=== PATIENT | male | born 1960 | race Caucasian/White ===

== ENCOUNTER 2021-07-10 06:04 | Outpatient (REF) | payer OTHER, SELFPAY | END 2021-07-10 06:05 | disposition home or self-care (01) | LOC: HO.HOSX 06:04 | PROVIDERS: Visit Provider Physician Assistant | DX: Z13.89 Encounter for screening for other disorder (principal) ==

== ENCOUNTER 2022-12-10 07:37 | Outpatient (REF) | payer OTHER, SELFPAY | END 2022-12-10 07:38 | disposition home or self-care (01) | LOC: HO.CT 07:37 | PROVIDERS: PCP Internal Medicine; Visit Provider Internal Medicine | DX: R51.9 Headache, unspecified (principal); Z91.81 History of falling | CPT/HCPCS: 70450 ==

== ENCOUNTER 2023-01-05 12:35 | Outpatient (REF) | payer OTHER, SELFPAY ==
--- NOTE | ~2023-01-05 | US_ITS ---
EXAMINATION: US VENOUS ULTRASOUND WITH DOPPLER LOWER EXTREMITY, LEFT CLINICAL INFORMATION: Left lower extremity pain. COMPARISON: None available. TECHNIQUE: Ultrasound of the deep veins is performed from the hip to the calf with compression sonography and color and pulse Doppler assessment. Spectral analysis with color-flow imaging is performed. FINDINGS: There is normal venous compression and respiratory variation and augmented flow. The visualized common femoral vein, superficial femoral vein, profunda femoral vein, popliteal vein, and the trifurcation region shows no evidence of deep venous thrombosis. No left popliteal cyst. The subcutaneous soft tissues are unremarkable. If the patient's symptoms persist, followup ultrasound in 5 days 7 days might be of value to exclude proximal propagation from a non-visualized calf vein. US/US venous duplex LE LT IMPRESSION: No evidence for deep venous thrombosis in the visualized veins of the left lower extremity.
--- NOTE | ~2023-01-05 | XR_ITS ---
EXAMINATION: XR CERVICAL SPINE CLINICAL INFORMATION: Neck pain. COMPARISON: MRI cervical spine 08/29/2006 TECHNIQUE: 5 views of the cervical spine were obtained. FINDINGS: The cervical spine is imaged through the C7 vertebral body. Relative straightening of the cervical lordosis. Vertebral body heights are maintained. Moderate intervertebral disc space narrowing at C5-C6 and C6-C7. Predominant right-sided facet hypertrophy. Lateral masses are symmetric. Prevertebral soft tissues are within normal limits. Imaged lung apices are clear. XR/XR cervical spine 3V IMPRESSION: Moderate degenerative disc disease C5-C6 and C6-C7.
== END 2023-01-05 12:36 | disposition home or self-care (01) ==
LOC: HO.HMGCX 12:35
PROVIDERS: PCP Internal Medicine; Visit Provider Internal Medicine
DX: M79.662 Pain in left lower leg (principal); M54.2 Cervicalgia
CPT/HCPCS: 72040; 93971

== ENCOUNTER 2024-08-01 15:40 | Outpatient (REF) | payer BC, SELFPAY ==
--- NOTE | ~2024-08-01 | XR_ITS ---
EXAMINATION: XR CERVICAL SPINE CLINICAL INFORMATION: PAIN WITH RADICULOPATHY COMPARISON: 01/05/2023. TECHNIQUE: 7 views of the cervical spine, inclusive of bilateral oblique views, were obtained. FINDINGS: There is osteopenia. There is a trace levoconvex scoliosis, possibly positional. There is a normal cervical lordosis. There are no subluxations. There are no compression deformities, acute fractures, or suspicious bone lesions. Atlantoaxial and C1-2 articulations are intact and aligned. There are mild to moderate degenerative disc changes most notable at C5-6 and C6-7. Facets are normally aligned. There are multilevel hypertrophic degenerative facet changes right greater than left. Oblique views demonstrate moderate bony neural foraminal narrowing on the right at C4-5 and C5-6, and moderate narrowing on the left at C5-6. Mild left narrowing at C4-5. XR/XR cervical spine 5V IMPRESSION: 1. No acute findings of the cervical spine. 2. Moderate degenerative spondylosis as discussed. Findings are largely unchanged from 01/05/2023. Electronically signed by: Levi Peña MD 08/02/2024 08:18 AM DAYANNA
--- OUTSIDE RECORDS SUMMARY | 2024-08-01 19:12 | XMS_ITS | Data Portability ---
Author Organization [place] - [facility], [facility] Office Address [address] [place] [address] Care Team Providers Care Department Clerk Name Role Phone DANIEL PRUETT Primary Care Provider [phone] Assessment Encounter Date Assessment Date Assessment LastModified by Organization Details LastModified Time 02/14/2017 02/14/2017 DATA: Films of both knees were obtained today. His left knee does show significant lateral compartment arthrosis with narrowing of the joint space. His right side is relatively well preserved without significant arthrosis. IMPRESSION: As above. PLAN: I would recommend fairly complex workup for this, in that his presentation with multiple joint problems is somewhat suggestive of a Lyme titer, so would recommend a workup for that to include Lyme titer and repeat sed rate and CRP. Additionally, would recommend getting MRI scans of both his right shoulder and right knee for assessment of these structures, and finally when he comes back with his new MRI scans, I would like to see him come along with his left knee MRI, which got left home today. Not available 02/15/2017 16:09:26 10/13/2017 10/13/2017 DATA: Review of his outside plain radiographs is notable for significant narrowing of the lateral compartment of this joint, with good preservation of the medial and patellofemoral compartments. IMPRESSION: Clearly he has significant lateral compartment fpjw-pt-bjjf arthritis. PLAN: I would recommend trying to unload this with an testing consultant brace. He is very fit and athletic, such that the brace is likely to give him significant relief. Additionally, it would be my recommendation that he undergo a physical therapy program to try to restore his quad tone and bulk. I would be happy to see him back in the future; in fact, would recommend a recheck in 3 months? time to assess his progress with his treatment. Prescriptions for the brace and PT were given. Not available 10/16/2017 00:07:38 05/20/2021 05/20/2021 DATA: I based my interpretation of his x-ray just from the report as I do not actually have the films, but per Dr. Moya's note from 2018 he had severe tnlq-wa-vepl lateral compartment arthritis and that has likely progressed. IMPRESSION: I think at this point in time he needs some physical therapy due to the amount of atrophy in his knee, but eventually he will need to see a joint surgeon. PLAN: We have him scheduled to see Dr. Galeana in August. I gave him a new PT referral today. He will follow-up with me as needed. The patient did complete the COVID-19 screening handout and was deemed healthy to move forward with this appointment. This visit is a cxzq-oz-ywzm visit during the COVID-19 pandemic Public Health Emergency. Based on my clinical judgment, I felt that this visit could not be provided safely and appropriately via TeleHealth. Based on available information prior to presentation, the patient had a high risk of significant worsening and potential functional impairment affecting ADLs if the visit was not completed today. The patient was seen in the office after following PPE use, Workforce Safety, Patient Safety and Infection Control protocols for all services provided today in accordance with [facility] and CDC guidelines. There was additional practice expense incurred due to the Public Health Emergency. This additional expense includes but is not limited to: ? ? Additional clinical staff and medical technical publications writer time for pre-screening ? ? Time spent reviewing COVID social distancing guidelines, precautions, instructions, and signage ? ? Patient symptom checking upon arrival ? ? Application, removal, and purchasing of additional PPE ? ? Additional cleaning of exam room, equipment, supplies, as well as cleaning supplies for that purpose. Not available 05/21/2021 23:57:26 12/16/2023 12/16/2023 Independent interpretation the x-rays today and the clinical examination of the left knee show end-stage bone against bone severe degeneration the left knee particular in the lateral compartment with loss of joint space, subchondral sclerosis, osteophyte formation, genu valgum and significant loss of function the left knee including atrophy and lack of function with limitations even of activities of daily living. We? ve discussed the many forms of conservative care for the treatment of the pain and the disability of knee arthritis. Prescription or over the counter NSAIDs have been discussed. These are offered to patients to be taken as directed only in those patients who can tolerate the medications and have no contraindication. He reports he is taken all different types of anti-inflammatory medications. He reports these have failed and he is now taking 5 mg of oxycodone. I have been extremely straightforward with the patient. I have told him that taking chronic narcotic will make it extremely difficult for him to have any type of relief with postoperative pain medications. It will factor into the potential that he will have a poor outcome after his knee replacement surgery. I would suggest trying to stop the narcotics or potentially at least taking a long vacation from them. Next, we have discussed injection in the knee and the many types of injection techniques. We have discussed cortisone, hyaluronic or gel injections, plasma rich protein ( PRP) and even stem cell. These can be made available here in the office. Pros and the cons discussed and if these are helpful they can even be repeated. He really is not interested in injections at all. Moderation of activities and even the use of bracing for the knee was discussed. For more extensive pain and disability possibly cane, crutch or walker. Physical therapy was discussed and can be prescribed in the more disabled patients. I am going to start some physical therapy for the atrophy of the left knee. Finally, we have discussed the potential for total knee arthroplasty for the treatment of intractable knee arthritis. He has become extremely frustrated with the left knee and limited for his function. We have now discussed the potential for a left possibly outpatient TKA. We talked about the pros and cons of left possibly outpatient TKA potential complications. These complications include, but are not limited to, infection, bleeding, stiffness, limitation of motion, limitation of recovery, the risks of limited knee motion, the need for closed manipulation in the short term. I talked about the extraordinary difficulty of gaining back the ROM, including the need for use of physical therapy modalities and even the need for extensive therapeutic modalities, maybe even bracing and potentially long rehab that could last even up to one year. We have discussed the potential for closed manipulation at the end of the initial rehabilitation if the flexion has not been gained adequately. We discussed the use of a splint or DynaSplint if flexion and extension, or if extension is the primary issue. We also talked about the potential for ligamentous injury, fracture of the femur, tibia or patella. We talked about the risks of problems with malalignment and persistent pain and swelling and the need for further operation or surgery. We also discussed the potential for wear, wear of the plastic and potential osteolysis. We talked about potential loosening of the components and the potential need for further surgical intervention over time. We have discussed the potential for loosening of the interfaces. We talked about the risks of potential peroneal nerve injury in those valgus patients with the need for realignment and the potential for ligamentous injury to the varus patients that are in need of realignment. We discussed the pros, cons, indications, risks, benefits and potential complications in a lengthy detailed discussion. The patient appears to understand and would like to consider that left possibly outpatient TKA surgery. Patient has end stage OA, and over the past year has failed conservative treatments including activity modification, NSAIDS, and physical therapy. He would like to consider moving ahead with a left total knee arthroplasty potentially as an outpatient. All questions answered. [email or web address] Not available 12/16/2023 12:02:03 Plan of Treatment Reminders Order Date Submit Date Provider Last Modified By Organization Details Last Modified Time Details Appointments None recorded. Lab None recorded. Referral physical therapist referral - Knee arthritis PT 2023 024 [email or web address] Not available 4 12:08:49 Procedures None recorded. Surgeries orthopaedic surgery (SURG) 2023 024 [email or web address] Not available 4 13:21:16 Imaging None recorded. Medication Orders None recorded. Patient TargetsNo targets recorded. Patient InstructionsNo instructions recorded. Reason for Referral Physical Therapist Referral for Osteoarthritis of left knee joint Knee arthritis PT Referring Physician: De De Oliveira, Orthopedic Surgery, Encounter Date: 12/16/2023 Results Created Date Observation Date Name Description Value Unit Range Abnormal Flag Note LastModifiedBy Organization Detail LastModifiedTime 02/15/20 17 02/14/2017 XR, knee, 4 or more view John Woods Access ion Number : [id number] 2.1 Reyna gonzalez Name : Gelina s, Luke Medica niki Record Number : [id number] Date of : 1960 Date of Exam : 2016 Referr ing Physic monisha : FREDERICK GONZALES ND [facility] [address] [place] [address] Exam : CR - KNEE BILATE RAL, 4 VIEWS EACH, CPT CPT 48220- 50 - Room Descri ption : [facility] Vistek UArm XR Techni que : Bilate ral AP, Bilate ral Sunris e, Rt. Latera l, Lt. Latera l, Bilate ral Tunnel Final Report HISTOR Y: Bilate ral knee pain. FINDIN GS: No prior examin ations or report s are availa ble for compar antony. Bilate ral AP, tunnel , sunris e and latera l views were submit bertram. No fractu re or malali gnment is seen. Joint spaces are mainta ined. No signif icant joint effusi on is identi fied. There is thicke paulo of the proxim al infrap atella r soft tissue s. IMPRES TIRSO: Bilate ral knee x-ray. 1. No eviden ce for fractu re. 2. Bilate ral thicke paulo of the proxim al infrap atella r soft tissue s possib ly second michael to patell a tendin opathy and/or prepat ellar bursit is. ----- PHYSIC MONISHA : RAY LUNA MD (Signa loyd on file) 2016 [email or web address] [facility] [address], [place], [address], 02/14/2017 15:57:24 02/16/20 17 01/26/2017 MRI, knee, w/o contr ast No observ ation record ed. [email or web address] Not Available 08:15:32 10/14/19 18 02/24/2004 MRI, knee, w/o contr ast No observ ation record ed. [email or web address] Not Available 10/19 12:37:23 12/10/19 21 img:o iknee s bilat No observ ation record ed. [email or web address] [address], [place], [address] 12/09/2020 10:04:41 Result Notes None recorded. Problems Name Problem SNOMED Code Status Onset Date Resolution Date Notes Provider Name and Address Organization Details Recorded Time No current problems or disability 975218558 Active rekha nicholas yoli [facility] 8 15:35:10 Pain of left knee joint 8313959810961 07 Active 2020 Lynette nailsjosue kent [facility] 14:15:20 Problem Notes None recorded. Procedures Surgical History Date Name Laterality Status Provider Name and Address Organization Details Recorded Time 05/06/20 12 Orthopaedic Surgery completed Manjula Clarke [facility] 02/14/2017 14:15:29 04/06/20 07 Orthopaedic Surgery completed Manjula Clarke [facility] 02/14/2017 14:15:01 03/06/20 04 Orthopaedic Surgery completed Manjula Clarke [facility] 02/14/2017 14:14:48 Imaging Results Imaging Date Name Status LastModified by Organiz ation Details LastModified Time 02/14/2017 XR, knee, 4 or more view completed [email or web address] [facility] [address], [place], [address], 02/14/2017 15:57:24 01/26/2017 MRI, knee, w/o contrast completed [email or web address] Information not available 02/16/2017 08:15:32 02/24/2004 MRI, knee, w/o contrast completed [email or web address] Information not available 10/19/2017 12:37:23 12/09/2020 [email or web address] bilat completed [email or web address] [facility] [address] [place], [address] 12/09/2020 10:04:41 Procedure Notes None recorded. Medical Equipment None Reported. Allergies No known drug allergies Medications Name Sig Start Date Stop Date Status Note LastModified by Organization Details LastModified Time prednisone 20 mg tablet TK 3 TS PO QD FOR 5 DAYS 05/20 completed Not Available Not Available Not Available tramadol 50 mg tablet TAKE ONE TABLET BY MOUTH THREE TIMES A DAY NEEDED FOR PAIN IN BACK 02/14 completed Not Available Not Available Not Available triamcinolo ne acetonide 0.1 % topical cream APPLY SPARINGLY TO THE AFFECTED AREA TWICE DAILY FOR NO MORE THAN 2 WEEKS 12/14 completed Not Available Not Available Not Available oxycodone-a cetaminophe n 5 mg-325 mg tablet 10/13 completed Not Available Not Available Not Available cephalexin 500 mg capsule TAKE 1 CAPSULE BY MOUTH FOUR TIMES DAILY FOR 7 DAYS active Not Available Not Available No t Available morphine ER 15 mg tablet,exte nded release 10/13 completed Not Available Not Available Not Available colchicine 0.6 mg tablet 05/20 completed Not Available Not Available Not Available dextroamphe tamine-amph etamine ER 30 mg 24hr capsule,ext end release TAKE 1 CAPSULE BY MOUTH TWICE DAILY IN THE MORNING AND AFTERNOON WITH MEALS FOR ADHD active Not Available Not Available No t Available sertraline 50 mg tablet TAKE 1 TABLET BY MOUTH EVERY MORNING WITH MEALS active Not Available Not Available No t Available sulindac 200 mg tablet TAKE 1 TABLET BY MOUTH TWICE DAILY WITH FOOD 05/20 completed Not Available Not Available Not Available diazepam 5 mg tablet TAKE 1 TABLET BY MOUTH THREE TIMES DAILY NEEDED active Not Available Not Available No t Available oxycodone 5 mg tablet TAKE 2 TABLETS BY MOUTH FOUR TIMES DAILY active Not Available Not Available No t Available bupropion HCl SR 200 mg tablet,12 hr sustained-r elease 12/14 completed Not Available Not Available Not Available bupropion HCl XL 300 mg 24 hr tablet, extended release TAKE 1 TABLET BY MOUTH EVERY MORNING WITH 150 MG active Not Available Not Available No t Available bupropion HCl XL 150 mg 24 hr tablet, extended release TAKE 1 TABLET BY MOUTH EVERY MORNING WITH 300 MG TABLET active Not Available Not Available No t Available OxyContin 05/20 completed Not Available Not Available Not Available oxycodone 10 mg tablet 05/20 completed Not Available Not Available Not Available BinaxNOW COVID-19 Ag Self Test kit TEST DIRECTED TODAY active Not Available Not Available No t Available Vitals Date Recorded Body height Body mass index (BMI) Body weight Provider Name and Address Organization Details Last Updated DateTime 05/20/2021 177.8 cm 23 kg/m2 90860.78 g Elvia Tilley [place] - [facility] 05/20/2021 11:58:00 Date Recorded Body height Body mass index (BMI) Body weight Provider Name and Address Organization Details Last Updated DateTime 12/16/2023 177.8 cm 23.7 kg/m2 45367.74 g Jeane Allredlman [facility] 12/16/2023 11:31:28 Date Recorded Body height Body mass index (BMI) Body weight Provider Name and Address Organization Details Last Updated DateTime 02/14/2017 172.72 cm 23.6 kg/m2 53020.82 g Manjula Tricia [facility] 02/14/2017 14:13:46 Date Recorded Body height Body mass index (BMI) Body weight Provider Name and Address Organization Details Last Updated DateTime 10/13/2017 172.72 cm 22.8 kg/m2 84835.86 g rekha cristopher [facility] 10/13/2017 15:32:02 Social History Question Answer Notes LastModified by [email or web address] ion Details LastModified Time Tobacco Smoking Status [facility] 02/14/2017 14:15:59 What Is Your Level Of Alcohol Consumption? None Information not available 12/16/2023 Do You Or Have You Ever Used E-cigarettes Or Vape? 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 Yes Back heena Information not available 02/14/2017 What Was The Date Of Your Most Recent Tobacco Screening? 10/13/2017 Information not available 12/28/2018 Do You Or Have You Ever Used Smokeless Tobacco? [id number] Information not available 12/16/2023 How Much Tobacco Do You Smoke? No Information not available 12/16/2023 How Many Years Have You Smoked Tobacco? 0 Information not available 12/16/2023 Sex: Unknown Functional Status None recorded. Mental Status None recorded. Family History Relationship Description Onset Age of this Age Resolved Age Notes LastModified by Organization Details LastModified Time Father No current problems or disability [email or web address] Not available 05/06 12:02:05 Mother No current problems or disability [email or web address] Not available 05/06 12:02:05 Medical History Condition Response Blood Clots / Phlebitis N Heart Problems N HIV or AIDS N Depression or Anxiety Y High Blood Pressure N Irregular Heartbeat N MRSA N Emphysema / Chronic Bronchitis N Any Other Significant Medical Issues N Reaction to General/Local Anesthesia N Weight Gain / Loss N Hepatitis / Jaundice N Kidney / Bladder Infections N Diabetes N Bleeding Disorder N Hearing Loss N Angina, Heart Failure or Attack N Night Sweats N Seizures / Epilepsy N Osteoarthritis / Rheumatoid arthritis / Other Y Cancer N Stroke N Chemical Dependency / Alcoholism N Ulcer / Stomach Bleeding / Indigestion N Visual Loss or Glaucoma N Psoriasis / Skin Rash N Thyroid Disorder N Heart Disease N Asthma / Shortness of Breath / Sleep Pricing Consultant ea (please specify) N Pulmonary Embolism N Immunizations Vaccine Type Date Status Note Provider Nam e and Address Organization Details Recorded Time SARS-COV-2 (COVID-19) vaccine, UNSPECIFIED 07/07/2020 completed Elvia kent [facility] 05/20/2021 12:01:31 SARS-COV-2 (COVID-19) vaccine, UNSPECIFIED 07/28/2020 completed Elvia kent [facility] 05/20/2021 12:01:34 SARS-COV-2 (COVID-19) vaccine, UNSPECIFIED 01/04/2021 completed Elvia kent [facility] 05/20/2021 12:01:41 Past Encounters Encounter ID Performer Location Encounter Start Date Encounter Closed Date Diagnosis/Indication Diagnosis SNOMED-CT Code Diagnosis ICD10 Code Diagnosis Note [id number] MD Trevon Quintero am Office [address] [place] [address] 02/14/2017 13:14:08 02/14/2017 15:08:38 Osteoarthritis of knee 734932198 M17.32 Synovitis 994785348 M65. 161 [id number] MD Trevon Quintero am Office [address] [place] [address] 10/13/2017 14:55:42 10/13/2017 16:25:40 Osteoarthritis 826181161 M17.32 [id number] OUMOU SAUCEDO [facility] Office [address] [place] [address] 05/20/2021 11:02:45 05/20/2021 14:15:02 Pain of left knee joint 5379262458 40983 M25.363 [id number] DE FRANCISCO MD [facility] [address], [address] [place] [address] 12/16/2023 11:06:25 12/16/2023 12:08:49 Osteoarthritis of left knee joint 3529780261 34202 M17.12 Health Concerns Section Related Observation LastModified by Organization Detai ls LastModified Time None Recorded Concern Status LastModified by Organization Details LastModified Time None Recorded Advance Directives Directive None Recorded Payers Encounter Date Sequence Insurance Name Policy Number Policy Diallo Covered Member ID Diallo Member ID Guarantor Name 02/14/[address] [place] [address] [place] [id number] Margie Venessa [id number] Luke Venessa 10/13/2017 2 [facility] ([facility] [id number] Margie Venessa [id number] Luke Venessa 05/20/2021 1 [facility] [id number] Luke Venessa [id number] Luke Venessa 12/16/2023 1 [facility]: [facility] ([facility] [id number] Margie Juan [id number] Luke Venessa Notes Date Note Type Note Provider Name and Address Organization Details Recorded Time 02/14/2017 text/html DX: Complex mult i joint pain, question meniscal tear right knee, possible rotator cuff tear right shoulder, and posttraumatic arthrosis left knee. HX: Ralf is known to me having done arthroscopic surgery on his left knee back in 2003 for a complex tear of his lateral meniscus with parameniscal cyst and significant arthrosis. He did well post that but has had progressively increasing pain recently. Has had atraumatic onset of significant swelling in both knees. Apparently he had prepatellar bursitis treated by his primary care doctor that was not infected. He has also had right shoulder pain. He has multiple aches and pains all over. He has not been worked up for Lyme, but did have a significantly elevated sed rate back in January when he was worked up for pre-patellar bursitis that was in the upper 50s. His left knee has bothered him for a long time, and he has actually developed a fair amount of atrophy in that thigh, which is bothersome to him. PMH: Quite complex, which is outlined in his intake sheet, which is reviewed with him. He is currently working in financial services. Frederick Moya MD [address] [place] [address], [phone], [facility] 02/16/2017 07:33:44 10/13/2017 text/html DX: Lateral compartment osteoarthritis of the left knee. HX: Ralf is a gentleman I treated for this in the distant past. He has longstanding left knee pain that bothers him with activity. It does significantly limit him. It is not associated with any mechanical symptoms. He has had a prior diagnosis of anterior cruciate ligament deficient knee as well, and at the time of the previous arthroscopy his ACL was absent. He comes here seeking a second opinion since treatment options have been very limited, what they have explained to him in the [place] area. Frederick Moya MD [address] [place] [address], [phone], [facility] 10/17/2017 07:05:11 05/20/2021 text/html HX: Ralf is a ve ry pleasant 60-year-old male, a former patient of Dr. Moya. He last saw Dr. Moya on 10/13/2017. At that time Dr. Moya did mention that he had significant lateral compartment xffj-kp-xyez arthritis. He obtained an testing consultant brace for him, which helped. He wanted him to undergo some physical therapy, but unfortunately due to some family and life issues he has not been able to fully be compliant with PT. He is interested in getting back into that. He knows Dr. Myoa has retired and he was recently seen by [facility] out in [facility]. I do have the last office note and their interpretation of the x-rays, but I do not have the actual films. It sounds like there was an agreement that he had lateral compartment left knee osteoarthritis. There was a discussion of potentially obtaining a new MRI and doing a recheck after physical therapy.He is here for a second opinion, in particular about whether he should be getting a knee replacement for this knee. Again, I do not have the current x-rays, I just have the report, but I do have some of Dr. Moya's past notes to reflect back on as well.PMH: Medical history form was reviewed and signed in the chart.ROS: Completed. OUMOU SAUCEDO [address] [place] [address], [phone], [facility] 05/24/2021 13:41:14 12/16/2023 text/html Ralf Clifford presents for evaluation of his left knee. He reports many years of difficulties with his left knee. He reports that he had a surgery on his left knee when he was very young. He reports since that time he had chronic increasing difficulties with the left knee. He eventually visited with Dr. Frederick Moya. He had a second arthroscopic surgery for cleanout. They were considering a potential allograft lateral meniscus but his ACL was in too poor shape and the lateral compartment was in too poor condition. He has been using a thrust or type testing consultant brace. He has tried all different types of anti-inflammatory medications. He really would like to avoid any injections. He is presently taking oxycodone 5 mg 2-3 times a day. He is very limited for his function over the left knee. He is very frustrated with activities of daily living and the limitations are. DE FRANCISCO MD [address] [place] [address], [id number], [facility] 12/16/2023 12:03:03
== END 2024-08-01 15:41 | disposition home or self-care (01) ==
LOC: HO.HMGCX 15:40
PROVIDERS: PCP Internal Medicine; Visit Provider Internal Medicine
DX: M54.2 Cervicalgia (principal)
CPT/HCPCS: 72050

== ENCOUNTER → 2024-08-01 15:46 | Outpatient (BNV) | payer BC, SELFPAY | PROVIDERS: PCP Internal Medicine; Visit Provider Radiology Diagnostic Radiology | DX: M54.10 Radiculopathy, site unspecified (principal) | CPT/HCPCS: 72050 ==

== ENCOUNTER 2024-11-27 10:07 | Outpatient (AMB) | payer BC, SELFPAY ==
--- NOTE | 2024-11-27 10:25 | A.OFFPC_ITS ---
Vital Signs 11/27/24 10:32 Height 5 ft 8.11 in Weight 171 lb BMI 25.9 Respiration 16 Pulse 88 Pulse Source Pulse Oximeter Temp 97.7 F Temp Source Temporal Artery Scan Pulse Oximetry (%) 99 Oxygen Delivery Method Room Air Intake Visit Reasons: Establish Care Hr Advisor Required: No Accompanied by: Self / Same As Patient Allergies No Known Allergies (No Known Allergies*) Allergy (Unverified 11/27/24 10:26) Tobacco use date assessed: 11/27/24 Dental Screening Dental Screen Date: 11/27/24 Did you have a dental visit in the last 12 months?: Yes Did you have a dental problem in the last 6 months where you did not have access to dental care?: No Was dental information given to patient?: Patient has dentist [facility] Medical History (Updated 11/27/24 @ 11:23 by Jeff Fox MD) Chronic pain syndrome Surgical History History of colonoscopy (~07/26/14) Family History (Updated 11/27/24 @ 10:37 by BRIAN Martinez) Father No problems noted. Mother No problems noted. Social History (Updated 11/27/24 @ 10:37 by BRIAN Martinez) Housing: House Alcohol intake: current Alcohol intake frequency: does not drink Patient Tobacco Use Status: Former Tobacco user service: No Current occupational status: employed Cognitive needs: No Hearing needs: No Vision needs: Yes (reading glasses) Questionnaire PHQ-9 Over the last 2 weeks, how often have you been bothered by any of the following problems? 1. Little interest or pleasure in doing things: not at all 2. Feeling down, depressed, or hopeless: not at all 3. Trouble falling or staying asleep, or sleeping too much: not at all 4. Feeling tired or having little energy: not at all 5. Poor appetite or overeating: not at all 6. Feeling bad about yourself - or that you are a failure or have let yourself or your family down: not at all 7. Trouble concentrating on things, such as reading the newspaper or watching television: not at all 8. Moving or speaking so slowly that other people could have noticed. Or the opposite - being so fidgety or restless that you have been moving around a lot more than usual: not at all 9. Thoughts that you would be better off or of hurting yourself in some way: not at all Total score: 0 Source: Developed by Drs. Russell Andrews, Tila Campbell, Dany Klein and colleagues, with an educational malaika from [employer]. Thrive Questionnaire Date Thrive assessed: 11/27/24 I am a: Patient What is your living situation today?: I have a steady place to live Within the past 12 months, did the food you bought not last and you didn't have the money to get more?: Never true Within the past 12 months, did you worry whether your food would run out before you got money to buy more?: Never true Do you have trouble paying for medicines?: No Do you have trouble getting transportation to medical appointments?: No Do you have trouble paying your heating and electricity bill?: No Do you have trouble taking care of your child, family member or friend?: No Do you have trouble with day-to-day activities such as bathing, preparing meals, shopping, managing finances, etc.?: No Are you currently unemployed and looking for a job?: No Are you interested in more education?: No Please select the resources that you would like help with: None THRIVE Score: 0 AUDIT C Alcohol Use Questionnaire (AUDIT-C) 1. How often do you have a drink containing alcohol?: Never 3. How often do you have six or more drinks on one occasion?: Never Total Score: 0 BRENNON-7 AMB Questionnaire BRENNON-7 Date BRENNON - 7 assessed: 11/27/24 Feeling nervous, anxious, or on edge: 0 = Not at all Not being able to stop or control worryin = Not at all Worrying too much about different things: 0 = Not at all Trouble relaxin = Not at all Being so restless that it is hard to sit still: 0 = Not at all Becoming easily annoyed or irritable: 0 = Not at all Feeling afraid as if something awful might happen: 0 = Not at all Total BRENNON-7 score (0-4 normal; 5-9 mild; 10-14 moderate; 15-21 severe): 0 Source: Developed by Drs. Russell Andrews, Tila Campbell, Dany Klein and colleagues, with an educational malaika from [employer]. Physical exam (Primary Care) Vital Signs: Last Vital Signs Temp 97.7 F 11/27/24 10:32 Pulse 88 11/27/24 10:32 Resp 16 11/27/24 10:32 Pulse Ox 99 11/27/24 10:32 Oxygen Delivery Method Room Air 11/27/24 10:32 BMI result Body Mass Index 25.9 Tobacco/Smoking Status: Tobacco use Status Tobacco use date assessed 11/27/24 11/27/24 10:38 Patient Tobacco Use Status Former Tobacco user 11/27/24 10:38 PHQ-9: PHQ-9 Score PHQ-9: Total score 0 11/27/24 10:38 Thrive Assessment: Date of Thrive Assessment Date Thrive assessed 11/27/24 11/27/24 10:38 Coding Level of Care Code New Pt Level 4 (55395) Complex EM visit Add On G2211 Diagnoses Chronic pain syndrome G89.4 Assessment & Plan Assessment & Plan (1) Chronic pain syndrome: Code(s): G89.4 - Chronic pain syndrome Category: Medical Plan: Patient is transferring his care from Dr. Hilliard. Currently he is taking Adderall and 240 pills of oxycodone per month. I have informed him that I will begin taper on the oxycodone. This month, he will take medications 3 times a day and in the next month he will be reduced to twice a day. Adderall prescriptions will not be done from this from this office. Plan History of Present Illness - The patient is a 64-year-old male presenting with management of chronic pain and medication adjustment prior to upcoming knee surgery. - Left knee osteoarthritis: The patient has a history of multiple surgeries on the left knee since childhood, with the most recent injury occurring during a police aicha approximately 20 years ago. - Right foot bone calcification: Following the injury, the patient experienced bone calcification in the right foot due to inadequate initial treatment. - Atrophy of the right foot: The patient reports significant atrophy in the right foot, requiring physical therapy, which has not yet been initiated due to the need for a referral. - COVID-19 infection: The patient has had COVID-19 three times, with the most recent infection causing persistent cognitive fog. - Chronic pain syndrome: The patient is currently on a regimen of oxycodone and Adderall, which he is attempting to taper off in preparation for surgery. - Spondylosis: The patient reports having spondylosis and bone spurs, contributing to his chronic pain. 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 Social History - Employment: The patient is a retired traffic police officer. - Family: The patient has two sons and has been involved in their upbringing. - Substance Use: The patient is attempting to taper off oxycodone and Adderall. Review of Systems - Musculoskeletal: Reports chronic pain in the left knee and right foot, atrophy in the right foot, and spondylosis. - Neurological: Reports cognitive fog following recent COVID-19 infection. - General: Reports history of multiple COVID-19 infections. Physical Exam General: Cooperative and healthy appearing Nutritional Appearance: Well nourished Orientation/consciousness: Patient oriented x3 Limitations: No limitations Head: Normal to inspection General: Appearance normal, both eyes and all related structures Neck: Normal visual inspection Chest: Normal palpation of entire chest wall Respiratory: N ormal respiratory effort Neurology: Patient oriented x3, reports experiencing brain fog following recent COVID-19 infection. Results Plan 1. Left Knee Osteoarthritis - Plan: The patient is scheduled for knee surgery and is advised to taper off oxycodone and Adderall prior to the procedure. 2. Right Foot Bone Calcification - Plan: Referral for physical therapy is needed to address atrophy and improve function. 3. Atrophy Of The Right Foot - Plan: Referral for physical therapy is needed to address atrophy and improve function. 4. Covid-19 Infection - Plan: Monitor cognitive symptoms and provide supportive care as needed. 5. Chronic Pain Syndrome - Plan: Gradual reduction of oxycodone and Adderall, with consideration of alternative pain management strategies such as Suboxone or Sublocade. 6. Spondylosis - Plan: Continue monitoring and manage symptoms as part of the overall pain management strategy. 7. Calcium Pyrophosphate Dihydrate Crystal Deposition Disease (Cppd) - Plan: Manage inflammation and monitor symptoms as part of the overall treatment plan. Discussion Notes I discussed with the patient the need to taper off oxycodone and Adderall prior to his upcoming knee surgery. We reviewed alternative pain management options, including Suboxone and Sublocade, to manage his chronic pain. I emphasized the importance of physical therapy for his right foot atrophy and provided a referral for the same. We also discussed monitoring his cognitive symptoms following his recent COVID-19 infection and the need for supportive care. The patient was informed about the conservative approach to medication management and the necessity of finding a provider willing to prescribe higher doses if needed. Patient Instructions - Taper off oxycodone and Adderall as advised before surgery. - Attend physical therapy sessions for right foot atrophy. - Monitor cognitive symptoms and seek support if needed. - Follow up in one month for medication review and further management.
[2024-11-27 10:32] VITALS: PULSE 88; RESP 16; TEMP 36.5; O2SAT 99; BMI 25.9
--- OUTSIDE RECORDS SUMMARY | 2024-11-27 11:08 | XMS_ITS | Patient Health Record ---
Author Organization [facility] Address [address] [place] [address] Care Team Providers Care Welfare Service Aide Name Role Phone Jason Bolanos MD Primary Care Provider UnavailRussell Linder [phone] Reason For Referral No Information Medications Medication SIG (Take, Route, Fr equency, Duration) Notes Start Date End Date Status Percocet 1 tab 2-3x QD Active traMADol HCl prn Active MoviPrep 100 GM as directed Orally a s directed for 1 dose 03/19/2014 Active Problems Problem Type SNOMED Code ICD Code Onset Dates Problem Status W/U Status Risk Notes Problem Pre-surgery evaluation (731202675) Other specified pre-operative examination (V72.83) Active confirmed Problem Colon cancer screening (V76.51) Active confirmed Plan Of Treatment Future Test Test Name Order Date COLONOSCOPY 03/19/2014 Insurance Providers Payer Name Payer Address Payer Phone Subscriber Number Group Number Insured Name Patient Relationship to Insured Coverage Start Date Coverage End Date [facility] [address] [facility] [phone] [id number] KOLE GUY Self - patient is the insured Medical (General) History Medical History History ICD Code Denies CT,DM,CVA,Lung disease,renal dise ase Herniated disc L5-S1--epidural injection s Surgical History Surgery Date(Month/Year) Bone spur from shoulder Knee meniscus repair
== END 2024-11-27 11:21 | disposition home or self-care (01) ==
LOC: HO.HMCSH 10:07
PROVIDERS: PCP Internal Medicine; Visit Provider Internal Medicine
DX: G89.4 Chronic pain syndrome (principal)

== ENCOUNTER → 2024-11-27 10:07 | Outpatient (BNVA) | payer BC, SELFPAY | PROVIDERS: PCP Internal Medicine; Visit Provider Internal Medicine | DX: Z13.89 Encounter for screening for other disorder (principal) ==

== ENCOUNTER 2025-01-01 17:20 | Outpatient (AMB) | payer BC, SELFPAY ==
--- OUTSIDE RECORDS SUMMARY | 2025-01-01 17:23 | XMS_ITS | Patient Health Record ---
Author Organization [facility] Address [address] [place] [address] Care Team Providers Care Water Plant Pump Operator Name Role Phone Luis Miguel (RETIRED) Jason BAUMAN Primary Care Provider Unavailable Russell Olivas Unavailable [phone] Reason For Referral No Information Medications Medication SIG (Take, Route, Fr equency, Duration) Notes Start Date End Date Status Percocet 1 tab 2-3x QD Active traMADol HCl prn Active MoviPrep 100 GM as directed Orally a s directed for 1 dose 03/19/2014 Active Problems Problem Type SNOMED Code ICD Code Onset Dates Problem Status W/U Status Risk Notes Problem Pre-surgery evaluation (416834422) Other specified pre-operative examination (V72.83) Active confirmed Problem Colon cancer screening (127899950) Colon cancer screening (V76.51) Active confirmed Plan Of Treatment Future Test Test Name Order Date COLONOSCOPY 03/19/2014 Insurance Providers Payer Name Payer Address Payer Phone Subscriber Number Group Number Insured Name Patient Relationship to Insured Coverage Start Date Coverage End Date [facility] [address] [facility] [phone] [id number] KOLE GUY Self - patient is the insured Medical (General) History Medical History History ICD Code Denies ID,DM,CVA,Lung disease,renal dise ase Herniated disc L5-S1--epidural injection s Surgical History Surgery Date(Month/Year) Bone spur from shoulder Knee meniscus repair
--- OUTSIDE RECORDS SUMMARY | 2025-01-01 17:23 | XMS_ITS | Clinical Summary ---
Author Organization [facility] Address [address] [place] [address] Phone Care Team Providers Care Manager Ct Name Role Phone Jason Bolanos MD Primary Care Provider [phone] Allergies No known active allergies Medications bupropion HCl (WELLBUTRIN XL ORAL) Take by mouth. Active oxycodone HCl (OXYCODONE ORAL) Take by mouth. Active Encounters Date Type Department Care Team Description 12/19/2024 Telephone [facility] [address] [place] [address] Pcp, Unknown Triage (Medication management + [facility] appt) from Last 3 Months Immunizations No known immunizations Social History Tobacco Use Types Packs/Day Years Used Date Smoking Tobacco: Former Cigarettes Smokeless Tobacco: Never Tobacco Cessation:Counseling Given: Not Answered Alcohol Use Standard Drinks/Week Comments Not Currently 0 (1 standard drink = 0.6 oz pur e alcohol) Education Answer Date Recorded Are you interested in more education? Not on lowell e 12/21/2022 Are you concerned about learning? Not on file 12/21/2022 No 12/21/2022 No 12/21/2022 Digital Access Answer Date Recorded No 12/21/2022 No 12/21/2022 Reliable internet access at home? Not on file 12/21/2022 Device with a working camera? Not on file Intimate Partner Violence Answer Date R ecorded Are you denied basic needs s uch as food, clothing, or medical care? No 12/21/2022 In the past 12 months have y ou been in a relationship with a person who hurts, threatens, or tries to control you? No 12/21/2022 Are you denied basic needs s uch as food, clothing, or medical care? No 12/21/2022 In the past 12 months have y ou been in a relationship with a person who hurts, threatens, or tries to control you? No 12/21/2022 Sex and Gender Information Value Date Recorded Sex Assigned at Male 12/21/2022 4:07 PM EDT Legal Sex Male 3:29 PM EDT Gender Identity Male 12/21/2022 4:07 PM EDT Sexual Orientation Straight 12/21/2022 4: 07 PM EDT Last Filed Vital Signs Vital Sign Reading Time Taken Comments Blood Pressure 116/78 12/21/2022 7:59 PM EDT Pulse 98 12/21/2022 7:59 PM EDT Temperature 36.6 C (97.9 F) 12/21/2022 7:59 PM EDT Respiratory Rate 18 12/21/2022 7:59 PM EDT Oxygen Saturation 98% 12/21/2022 7:59 PM EDT Inhaled Oxygen Concentration - - Weight 72.6 kg (160 lb) 12/21/2022 3:56 PM EDT Height 177.8 cm (5' 10 ) 12/21/2022 3:56 PM EDT Body Mass Index 22.96 12/21/2022 3:56 PM EDT Plan of Treatment Upcoming Encounters Date Type Department Care Team (Late st Contact Info) Description 03/29/2025 11:00 AM EDT Office Visit [facility] [address] [place] [address] Jayden Colon DO [address] [facility], [address] [place] [address] [email or web address] Health Maintenance Due Date Last Done Comments Adult Td,Tdap Booster 1961 LIPID PANEL 1961 DEPRESSION SCREENING 1973 SMOKING Hx and SMOKELESS TOB ACCO SCREENING 1974 HEPATITIS C SCREENING 09/05/1979 HIV ONE-TIME SCREENING (18-6 5 YEARS) 09/05/1979 COLOGUARD 2006 COLONOSCOPY 2006 COLORECTAL CANCER SCREENING 2006 FIT TEST 2006 FOBT 2006 SIGMOIDOSCOPY 2006 VIRTUAL COLONOSCOPY 2006 PNEUMOCOCCAL VACCINES (50+ y ears) (1 of 1 - PCV) 09/05/2011 ZOSTER VACCINES (1 of 2) 09/05/2011 COVID-19 VACCINE ( - 2023-2 5 season) 2024 RSV VACCINE (1 - 1-dose 75+ series) 2036 HEPATITIS A VACCINES Aged Out No long er eligible based on patient's age to complete this topic HIB VACCINES Aged Out No longer eligi ble based on patient's age to complete this topic MENINGOCOCCAL VACCINES (ACWY) Aged Out No longer eligible based on patient's age to complete this topic MENINGOCOCCAL VACCINES (B) Aged Out N o longer eligible based on patient's age to complete this topic Medical Devices Not on file Insurance [place] [address] [facility] Care Teams Manager Ct Relationship Specialty Start Date End Date Jaosn Bolanos MD [address] [place] [id number] PCP - General Internal Medicine 12/21/22 Additional Source Comments The information contained in this document represents components of the legal health record. It is not the complete legal health record.[facility]
--- NOTE | 2025-01-02 07:06 | A.OFFPC_ITS ---
Intake Visit Reasons: 1 month f/u Allergies No Known Allergies (No Known Allergies*) Allergy (Unverified 11/27/24 10:26) Tobacco use date assessed: 11/27/24 Dental Screening Dental Screen Date: 11/27/24 HPI 1 month f/u HPI Details 64-year-old male wishes to discuss his m edical health via tele health. Patient is unhappy that is opiates are being tapered. I had reduced his quantity of 240 5 mg oxycodone 280 per month in the last visit. Patient had inform me that he had to get off the medications for the surgeon to consider a procedure. He expresses onset of inflammation in his various joints when he tapers the dosage. He has not met the providers at chronic pain management. Patient reports that he is not being very functional and unable to do his regular activities of daily living. [facility] Medical History (Updated 11/27/24 @ 11:23 by Jeff Fox MD) Chronic pain syndrome Surgical History History of colonoscopy (~07/26/14) Family History (Updated 11/27/24 @ 10:37 by BRIAN Martinez) Father No problems noted. Mother No problems noted. Social History (Updated 11/27/24 @ 10:37 by BRIAN Martinez) Housing: House Alcohol intake: current Alcohol intake frequency: does not drink Patient Tobacco Use Status: Former Tobacco user service: No Current occupational status: employed Cognitive needs: No Hearing needs: No Vision needs: Yes (reading glasses) Questionnaire Thrive Questionnaire Date Thrive assessed: 11/27/24 BRENNON-7 AMB Questionnaire BRENNON-7 Date BRENNON - 7 assessed: 11/27/24 Source: Developed by Drs. Russell Andrews, Tila Campbell, Dany Klein and colleagues, with an educational malaika from [employer]. Physical exam (Primary Care) Tobacco/Smoking Status: Tobacco use Status Tobacco use date assessed 11/27/24 11/27/24 10:38 Patient Tobacco Use Status Former Tobacco user 11/27/24 10:38 Thrive Assessment: Date of Thrive Assessment Date Thrive assessed 11/27/24 11/27/24 10:38 Telehealth Telehealth Telehealth Platform: Doxim[employer] Location of provider rendering services: practice address Location of patient: address on file Patient Identification confirmed using: Name, : Yes Telehealth method: voice only Patient verbally consented to treatment: Yes Patient verbally consented to billing insurance company: Yes Patient informed of any privacy concerns related to visit: Yes Minutes spent on Phone/Video with Pt.: 20 Coding Level of Care Code Tele Est Pt Level 4 (35931) Complex EM visit Add On G2211 Diagnoses Chronic pain syndrome G89.4 Assessment & Plan Assessment & Plan (1) Chronic pain syndrome: Code(s): G89.4 - Chronic pain syndrome Category: Medical Plan: I spent 20 minutes having a discussion with the patient. I insisted that his opiates be taper down further. He will now take oxycodone at 25 mg a day. He should have a prescription of Narcan and I have insisted on blood and urine testing. Patient has reluctantly agreed for the same. Orders: Orders Complete Blood Count no Diff Today G89.4 - Chronic pain syndrome Basic Metabolic Panel Today G89.4 - Chronic pain syndrome Lipid Panel Today G89.4 - Chronic pain syndrome AMB 14 Panel Urine Drug Screen Today G89.4 - Chronic pain syndrome, Z51.81 - Encounter for therapeutic drug level monitoring Liver Panel Today G89.4 - Chronic pain syndrome Thyroid Stimulating Hormone Today G89.4 - Chronic pain syndrome UA and rflx microscopic Today G89.4 - Chronic pain syndrome Medications: New naloxone 4 mg/actuation (Narcan) spray 1 dose into ONE nostril; alternate nostrils w each dose until help arrives 4 mg intranasal Q2M PRN 2 ea 0RF opioid overdose Changed From oxycodone His dosage is being tapered down. He was taking 10 mg every 6 hrs and now he will be taking 10 mg every 8 hours 10 mg (2 x 5 mg) PO Q8H 30 days 180 tabs 0RF To oxycodone His dosage is being tapered down. the new directions are 2 tabs in am, one in the afternoon and 2 at night 10 mg (2 x 5 mg) PO Q8H 150 tabs 0RF 30 days
== END 2025-01-02 08:43 | disposition home or self-care (01) ==
LOC: HO.HMCSH 17:20
PROVIDERS: PCP Internal Medicine; Visit Provider Internal Medicine
DX: G89.4 Chronic pain syndrome (principal)